=== PATIENT | male | born 1955 | race Two or more races ===

== ENCOUNTER → 2016-06-17 | Outpatient (CLI) | payer OTHER ==
[~2016-06-17] MED LIST: LOSARTAN-HCTZ1 EAC1 PO; METFORMIN HCL500 M1 PO; PRAVASTATIN SOD20 MG PO; RAPAFLO8 MG PO
--- NOTE | ~2016-06-17 | EKG ---
PATIENT: BRENDA JAMES UNIT #: [id number] Ventricular Rate: 76 BPM Atrial Rate: 76 BPM P-R Interval: 166 ms QRS Duration: 86 ms Q-T Interval: 350 ms QTC Calculation(Bezet): 393 ms P [place]: 62 degrees Calculated R [place]: 42 degrees Calculated T [place]: -6 degrees Diagnosis Line: Normal sinus rhythm Diagnosis Line: T wave abnormality, consider inferior ischemia Diagnosis Line: Abnormal ECG Diagnosis Line: Diagnosis Line: Confirmed by CATHERINE GABRIEL MD ([id number]) on 06/18/2016 Diagnosis Line: 11:16:50 PM INTERPRETING MD: HARVEY ALLISON
[2016-06-17 13:58] LABS: HEMOGLOBIN 14.4 gm/dL (13.0-16.0); MEAN CELL VOLUME 85.6 FL (83-96); MEAN CORPUSCULAR HEMOGLOBIN 28.7 PG (28-34); MEAN CORPUSCULAR HGB CONC 33.5 g/dL (30-36); MEAN PLATELET VOLUME 6.8 FL (6.5-11.5); RED BLOOD COUNT 5.03 X10e (3.90-5.60); RED CELL DISTRIBUTION WIDTH 13.8 % (11.0-15.5); WHITE BLOOD COUNT 5.6 X10e3 (4.0-10.5)
[2016-06-17 15:03] LABS: BUN/CREATININE RATIO 21.11; CALCIUM SERUM 9.5 mg/dL (8.4-10.2); CREATININE SERUM 0.9 mg/dL (0.6-1.4); GLOM FILT RATE Estimated 90.6 mL/min (>60); POTASSIUM 4.1 mmol/L (3.5-5.1)
== END | disposition home or self-care (01) ==
LOC: CAMB 13:23
PROVIDERS: Orthopaedic Surgery
DX: Z01.818 Encounter for other preprocedural examination (principal)
CPT/HCPCS: 36415; 80048; 85027; 93005

== ENCOUNTER → 2016-06-18 | Day surgery (SDC) | payer OTHER ==
--- NOTE | ~2016-06-18 | OR ---
Unit #: [id number] #: [id number] Patient: BRENDA JAMES [id number] [address] [address] [id number] MR#: [id number] NAME: BRENDA JAMES ROOM: Date of Procedure: 06/18/2016 Admission Date: 06/18/2016 Surgeon: Juan Mathews M.D. : 1955 Attending Physician: Juan Mathews M.D. OPERATIVE REPORT PREOPERATIVE DIAGNOSIS Left shoulder anterior rotator cuff tear. POSTOPERATIVE DIAGNOSES 1. Left shoulder anterior rotator cuff tear. 2. Long head biceps tendon tear. PROCEDURES PERFORMED 1. Left shoulder arthroscopic rotator cuff repair. 2. Left shoulder arthroscopic biceps tenodesis. ALUMNI RELATIONS OFFICER Cammie Croft CFA. ANESTHESIA General endotracheal. COMPLICATIONS None. SPECIMENS None. DRAINS None. SURGICAL IMPLANTS 1. Single 2.9 mm JuggerKnot suture anchor. 2. Single 4.5 mm [place] knotless lateral row suture anchor. INDICATION FOR PROCEDURE is a 61-year-old male who presented to my office with persistent left shoulder pain that failed to respond to conservative treatment. He had an MRI from almost a year ago after an injury noting an anterior supraspinatus tear. The patient had no improvement in the symptoms. After discussion, the patient elected surgical intervention. I felt he would benefit from arthroscopic rotator cuff repair and procedures as needed. Risks, benefits, and alternatives of the surgery were discussed with the patient. Informed consent was obtained. Risks include, but not limited to, infection, bleeding, nerve injury, blood clots, risks associated with anesthesia, need for further surgery, and Unit #: [id number] #: [id number] Patient: BRENDA JAMES possibly . DESCRIPTION OF PROCEDURE On 06/18/2016, the patient was seen in the preoperative holding area, where his surgical site was marked. Preoperative antibiotics were received. H and P and consent updated. He was taken to the operating room and provided general anesthesia. He was placed in beach chair position. Left upper extremity was prepped and draped in typical sterile fashion. Time-out performed confirming the correct surgical site and procedure. At this point, a standard posterior portal was created with an 11-blade. A blunt trocar carefully was inserted into the joint. There was anterior supraspinatus tear noted. Undersurface debrided with a shaver. Anterior portal had been created through the rotator interval. Subscapularis was intact. Glenohumeral joint cartilage intact. The remainder of the rotator cuff was intact. There was significant tearing of the long head of biceps tendon at the insertion site. It was felt that this was a possible source of his pain along with anterior supraspinatus tear. Clinically, he did have discomfort with biceps maneuvers. At this point, a suture was passed through the biceps. This was a #2 MaxBraid suture. It was then released off the insertion site with ArthroCare wand. At this point, the camera was then moved to the subacromial space. Thorough bursectomy performed. Anterior supraspinatus rotator cuff tear identified. There was some delamination of the tear. Some of the anterior fibers were still intact. The appearance was somewhat of a V shape. At this point, the bed was prepared with the bur. A single JuggerKnot suture anchor was placed at the medial footprint. The four limbs were passed in mattress fashion through the anterior and posterior aspects of the rotator cuff. They were then tied down sequentially reducing the cuff back to the footprint. The sutures were then pulled over the top to a lateral row anchor. The biceps tenodesis sutures were also docked into the lateral row knotless anchor. This was placed in standard fashion with appropriate tension across all limbs. The sutures were cut flush at the anchor. Final images were taken of the shoulder joint confirming appropriate repair of the rotator cuff and biceps tenodesis. All instruments were then removed. The four surgical portal wounds were closed with 2-0 nylon suture. Xeroform, 4x4s, ABD pad, and tape along with a sling immobilizer were placed. The patient was subsequently awakened from general anesthesia in stable condition and taken to the PACU postoperatively. POSTOPERATIVE PLAN The patient will be nonweightbearing on the left upper extremity. He will do pendulums daily. He will follow up in my office in 7 to 10 days. No complications encountered during the surgical procedure. Dictated by... Robbin Bernard/mervat TD: 06/19/2016 03:14 JOB #: [id number] Unit #: [id number] #: [id number] Patient: BRENDA JAMES OPERATIVE REPORT Page 1 of 1 X X PROCEDURE OPERATIVE NOTE
== END | disposition home or self-care (01) ==
LOC: CSUR 07:22
DX: S46.012A Strain of muscle(s) and tendon(s) of the rotator cuff of left shoulder, initial encounter (principal); S46.112A Strain of muscle, fascia and tendon of long head of biceps, left arm, initial encounter; I10 Essential (primary) hypertension; E11.9 Type 2 diabetes mellitus without complications; E78.5 Hyperlipidemia, unspecified; Z79.899 Other long term (current) drug therapy; X58.XXXA Exposure to other specified factors, initial encounter
CPT/HCPCS: 82947; C1713; J0171; J0330; J0690; J1885; J2250; J2270; J2370; J2405; J2710; J3010

== ENCOUNTER 2016-06-19 08:42 | Emergency (ER) | payer OTHER ==
[2016-06-19 08:42] LABS: URINE SOURCE CLEAN CATCH
[2016-06-19 08:51] LABS: URINE APPEARANCE CLEAR; URINE BILIRUBIN NEG (NEG); URINE BLOOD NEG (NEG); URINE COLOR YELLOW; URINE GLUCOSE NEG (NEG); URINE KETONE NEG (NEG); URINE LEUKOCYTE ESTERASE NEG (NEG); URINE NITRATE NEG (NEG); URINE PH 6.5 (5-8); URINE PROTEIN NEG (NEG); URINE SPECIFIC GRAVITY 1.011 (1.003-1.035); URINE UROBILINOGEN 0.2 MG/DL (NEG)
[2016-06-19 08:56] LABS: CULTURE INDICATED? NO
== END 2016-06-19 10:30 | disposition home or self-care (01) ==
LOC: CED 08:42
PROVIDERS: Emergency Medicine
DX: R33.9 Retention of urine, unspecified (principal); E11.9 Type 2 diabetes mellitus without complications; I10 Essential (primary) hypertension; Z79.899 Other long term (current) drug therapy
CPT/HCPCS: 51702; 81003; 99284